=== PATIENT | female | born 2000 | race Hispanic/Latino ===

== ENCOUNTER 2020-02-09 15:16 | Emergency (ER) | payer MEDICAID ==
[~2020-02-09] VITALS: Ht 157.5 cm; Wt 50.5 kg
[2020-02-09] MEDS ORDERED: NS 1,000 ML IV ONE (16:15)
[2020-02-09 16:26] LABS: APPEARANCE, URINE HAZY (CLEAR); BACTERIA, URINE AUTO 1+ (NEGATIVE); BILIRUBIN, URINE AUTO NEGATIVE (NEGATIVE); BLOOD, URINE BLOOD NEGATIVE (NEGATIVE); COLOR, URINE YELLOW (YELLOW); GLUCOSE, URINE (UA) AUTO NEGATIVE (NEGATIVE); KETONE, URINE AUTO NEGATIVE (NEGATIVE); LEUKOCYTE ESTERASE, URINE AUTO NEGATIVE (NEGATIVE); MUCUS, URINE MODERATE (NEGATIVE); NITRITE, URINE AUTO NEGATIVE (NEGATIVE); PROTEIN, URINE AUTO 1+ mg/dL (NEGATIVE); RBC, URINE AUTO 4 /HPF (0-3); SPECIFIC GRAVITY URINE AUTO 1.019 (1.002-1.035); SQUAMOUS EPITHELIAL CELL UR AU 5 /HPF (0-6); UROBILINOGEN, URINE AUTO 0.2 mg/dL (0.0-2.0); WBC, URINE AUTO 3 /HPF (0-3)
[2020-02-09 16:41] LABS: BASO % 0.6 % (0.0-1.0); EOS # 0.1 10^3/uL (0.0-0.5); EOS % 1.6 % (0.0-3.0); HEMATOCRIT 34.8 % (36.0-47.0); HEMOGLOBIN 11.2 g/dl (12.0-15.5); LYMPH # 1.4 10^3/uL (1.5-5.0); LYMPH % 27.7 % (24.0-44.0); MEAN CORPUSCULAR HEMOGLOBIN 26.9 pg (27.0-33.0); MEAN CORPUSCULAR HGB CONC 32.2 g/dl (32.0-36.5); MEAN CORPUSCULAR VOLUME 83.5 fl (80.0-96.0); MONO # 0.4 10^3/uL (0.0-0.8); MONO % 6.8 % (0.0-5.0); NEUTROPHILS # 3.2 10^3/uL (1.5-8.5); NEUTROPHILS % 62.9 % (36.0-66.0); PLATELET COUNT, AUTOMATED 218 10^3/uL (150-450); RED BLOOD COUNT 4.17 10^6/uL (4.00-5.40); WHITE BLOOD COUNT 5.1 10^3/uL (4.0-10.0)
--- NOTE | 2020-02-09 17:09 | REPVR ---
PROCEDURE INFORMATION: Exam: US First Trimester, Transabdominal Exam date and time: 02/09/2020 4:44 PM Age: 20 years old Clinical indication: complicated by abdominal or pelvic pain; Lower; First trimester; Gestational age or lmp: 10 weeks 4days; ; Additional info: Vaginal bleeding, suprapubic pain TECHNIQUE: Imaging protocol: Real-time transabdominal obstetrical ultrasound of the maternal pelvis and a first trimester , less than 14 weeks 0 days, with image documentation. COMPARISON: No relevant prior studies available. FINDINGS: Gestation: Intrauterine gestation. Yolk sac is unremarkable. Embryonic/ heart rate: = 169 bpm. Placenta: Placenta is posterior. The inferior edge of the placenta covers the internal os. Amniotic fluid: Amniotic fluid is normal for gestational age. BIOMETRY: Gestational age (AUA): pole has a crown-rump length measurement of 4.12 cm for a menstrual age of 11 weeks and 0 days. MATERNAL: Uterus: The uterus is retroverted. Cervix: Unremarkable.. Right adnexa: Right ovary measures 3.4 x 1.9 by 1.7 cm. Arterial blood flow demonstrated in the right ovary on pulse Doppler . Left adnexa: Left ovary measures 4.4 x 2.6 by 2.7 cm and contains a complex follicle measuring 2.5 cm in maximum diameter. Arterial and venous blood flow demonstrated in the left ovary on color Doppler and pulse Doppler examination. Intraperitoneal space: No intraperitoneal free fluid. IMPRESSION: 1. Single live intrauterine with an estimated menstrual age of 11 weeks and 0 days. Expected date of delivery 08/30/2020. 2. No evidence of subchorionic hemorrhage. 3. Asymmetric placenta previa . Electronically signed by: Flor Guadarrama On 02/09/2020 17:09:33 PM
[2020-02-09] MEDS ORDERED: KEFL500C17 PO (17:55)
[2020-02-09] MEDS ORDERED: NS 500 ML IV ONE (18:30)
[2020-02-09 19:20] LABS: BLOOD UREA NITROGEN 7 MG/DL (7-18); CALCIUM LEVEL 8.8 MG/DL (8.5-10.1); CARBON DIOXIDE LEVEL 25 MEQ/L (21-32); CHLORIDE LEVEL 107 MEQ/L (98-107); CK-MB VALUE MASS < 1.0 NG/ML (<3.6); CPK CREATINE PHOSPHOKINASE 72 U/L (26-192); CREATININE FOR GFR 0.46 MG/DL (0.55-1.30); FREE T4 1.23 NG/DL (0.78-1.33); GLUCOSE, FASTING 84 MG/DL (70-100); MB/CK RELATIVE INDEX 1.39 (< OR =4); POTASSIUM SERUM 3.8 MEQ/L (3.5-5.1); SODIUM LEVEL 138 MEQ/L (136-145); THYROID STIMULATING HORMONE 0.563 uIU/ML (0.463-3.98); TROPONIN I < 0.02 NG/ML (< 0.10)
[2020-02-09 20:08] VITALS: BP 107/59
--- NOTE | 2020-02-10 00:11 | ECGEPIP ---
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
== END 2020-02-09 18:18 | disposition home or self-care (01) ==
LOC: M ED 15:16
DX: O20.0 Threatened abortion (principal); O26.891 Other specified pregnancy related conditions, first trimester; O20.8 Other hemorrhage in early pregnancy; O44.01 Complete placenta previa NOS or without hemorrhage, first trimester; O23.41 Unspecified infection of urinary tract in pregnancy, first trimester; O99.411 Diseases of the circulatory system complicating pregnancy, first trimester; Z87.59 Personal history of other complications of pregnancy, childbirth and the puerperium; Z3A.11 11 weeks gestation of pregnancy; Z91.018 Allergy to other foods

== ENCOUNTER 2020-03-06 23:09 | Emergency (ER) | payer MEDICAID ==
[~2020-03-06] VITALS: Ht 157.5 cm; Wt 50.0 kg
[~2020-03-06 23:09] MED LIST: KEFL500C17 PO
[2020-03-07 02:05] VITALS: BP 136/68
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
== END 2020-03-07 02:21 | disposition home or self-care (01) ==
LOC: M ED 23:09 → EDBD 23:09 → M ED 03-07 02:21
DX: S40.021A Contusion of right upper arm, initial encounter (principal); S40.022A Contusion of left upper arm, initial encounter; S50.11XA Contusion of right forearm, initial encounter; S50.12XA Contusion of left forearm, initial encounter; S30.0XXA Contusion of lower back and pelvis, initial encounter; Y04.8XXA Assault by other bodily force, initial encounter; Y92.9 Unspecified place or not applicable; Y93.9 Activity, unspecified; Y99.9 Unspecified external cause status; Z3A.14 14 weeks gestation of pregnancy; Z91.018 Allergy to other foods

== ENCOUNTER → 2020-04-18 | Outpatient (CLI) | payer MEDICAID ==
--- NOTE | 2020-04-18 12:36 | REP ---
INDICATION: PREG, ANATOMY. COMPARISON: Obstetric ultrasound dated 03/07/2020. TECHNIQUE: Ultrasound of the gravid uterus. FINDINGS: There is a single intrauterine gestation. position is variable. The placenta is posterior with grade 0 maturity. There is no placenta previa. There is a three-vessel cord. The cervix measures 4.8 cm length. heart rate is 126 beats per minute. The amniotic fluid volume subjectively is normal. The composite ultrasound gestational age today is 20 weeks 6 days with an KIRK of 08/30/2020. Gestational age by the 1st ultrasound is 20 weeks 3 days with an KIRK of 09/02/2020. Gestational age by LMP is 20 weeks 3 days with an KIRK of 09/02/2020. weight is 377 g, 0 lb-13 oz. The following anatomic structures are identified and are unremarkable: Cranium, cavum septum pellucidum, falx, intracranial ventricles, choroid plexus, cerebellum, cisterna magna, facial profile, orbits, upper lip, lungs, cardiac rhythm, four-chamber art, cardiac right left ventricular outflow tracts, diaphragm, stomach, abdominal wall, right kidney, left kidney, bladder, spine, right and left upper extremities, right left lower extremities, 3 vessel cord. IMPRESSION: No anomalies are identified. <Electronically signed by Sunil Worthington > 04/18/20 [id number]
== END ==
LOC: M RAD 10:16
PROVIDERS: ATTEND Obstetrics & Gynecology
DX: Z34.82 Encounter for supervision of other normal pregnancy, second trimester (principal); Z3A.20 20 weeks gestation of pregnancy

== ENCOUNTER 2020-06-27 08:25 | Emergency (ER) | payer MEDICAID ==
[~2020-06-27] VITALS: Ht 157.5 cm; Wt 58.6 kg
[2020-06-27 08:26] VITALS: BP 128/70
--- OUTSIDE RECORDS SUMMARY | 2020-06-27 08:34 | CCD ---
Author Author [facility] Organization [facility] Address Unknown Phone Unavailable Care Team Providers Care Financial Services Specialist Name Role Phone Boogie GONZALEZ Unavailable Unavailable NO, PCP Unavailable Unavailable Re-disclosure Warning The records that you are about to access may contain information from federally-assisted alcohol or drug abuse programs. If such information is present, then the following federally mandated warning applies: This information has been disclosed to you from records protected by federal confidentiality rules (42 CFR part 2). The federal rules prohibit you from making any further disclosure of this information unless further disclosure is expressly permitted by the written consent of the person to whom it pertains or as otherwise permitted by 42 CFR part 2. A general authorization for the release of medical or other information is NOT sufficient for this purpose. The Federal rules restrict any use of the information to criminally investigate or prosecute any alcohol or drug abuse patient.The records that you are about to access may contain highly sensitive health information, the redisclosure of which is protected by Article 27-F of the [facility] Public Health law. If you continue you may have access to information: Regarding HIV / AIDS; Provided by facilities licensed or operated by the [facility] Office of Mental Health; or Provided by the [facility] Office for People With Developmental Disabilities. If such information is present, then the following [facility] mandated warning applies: This information has been disclosed to you from confidential records which are protected by state law. State law prohibits you from making any further disclosure of this information without the specific written consent of the person to whom it pertains, or as otherwise permitted by law. Any unauthorized further disclosure in violation of state law may result in a fine or skilled nursing sentence or both. A general authorization for the release of medical or other information is NOT sufficient authorization for further disc losure. Encounters Encounter Providers Location Date Indications Data Source(s ) Outpatient Attender: ARLET GONZALEZConsultant: PCP NO 02/02/2020 04:41:00 PM EDT - 02/02/2020 05:41:00 PM EDT [facility] Insurance Providers Payer name Policy type / Coverage type Policy ID Covered constitution party ID Covered constitution party's relationship to zuniga Policy Zuniga Plan Information EMEDNY [id number] SP [id number] MEDICAID -O/P [id number] Problems, Conditions, and Diagnoses Code Display Name Description Problem Type Effective Dates Data Source(s) E8680G4 with inconclusive viability, not applicable or unspecified with inconclusive viabil ity, not applicable or unspecified Diagnosis 02/02/2020 04:41:00 PM EDT [facility] Results ID Date Data Source [id number] 02/03/2020 02:48:00 [place] [address] PHONE: [phone] FAX: [phone] Name .................. : NAVIN JUÁREZ Acct Number.................. : [id number] ROOM. ................. : Number ................... : [id number] Stay type ............. : O/P Discharge Date......... ... : 02/02/20 Admit Date .... ..... : 02/02/20 Admit Phys .................... : CARLOS ODOM Date of ....... : 2000 Family Phys ................... : NO PCP Phone .................. : [phone] Age ................................ : 20 Film# .................. .:[id number] Sex ................................. : F Unsigned transcriptions are preliminary reports and do not represent a medical or legal document OB 1ST TRI UP TO 14 WEEKS [id number] COMPLETE:02/02/20 18:02 ADB [id number] (REASON FOR OBS: SIZES AND DATES FIRST TRIMESTER OBSTETRICAL ULTRASOUND: FINDINGS: A single live intrauterine is seen with estimated age of 9 weeks 4 days. heart rate is 170 beats per minute. Estimated delivery date is September 02, 2020. Subchorionic hemorrhage is not seen. In the left ovary is a 1.2 x 2.1 x 1.9 cm corpus luteal cyst. The ovaries are otherwise unremarkable. IMPRESSION: Single live intrauterine with estimated gestational age of 9 weeks 4 days. Subchorionic hemorrhage not appreciated. Electronically Reviewed and Signed By Marino Andre MD , 02/03/20 14:48, KGG Transcribe Initials: JENNA , Transcribe Date: 02/02/20 23:03, Dictation Date: Copy for: CARLOS Hyman via fax Copy for: [address] [facility] REC Page 1 of 1 Name Value Range Interpretation Code Description Data Delmy rce(s) Supporting Document(s) Procedure
--- OUTSIDE RECORDS SUMMARY | 2020-06-27 09:06 | CCD ---
Author Author [facility] Organization [facility] Address Unknown Phone Unavailable Care Team Providers Care Global Project Manager Name Role Phone Boogie GONZALEZ Unavailable Unavailable [...] is protected by Article 27-F of the [facility] Public Health law. If you continue you may have access to information: Regarding HIV / AIDS; Provided by facilities licensed or operated by the [facility] Office of Mental Health; or Provided by the [facility] Office for People With Developmental Disabilities. If such information is present, then the following [facility] mandated warning applies: This information has been [...] law may result in a fine or prison sentence or both. A general authorization for the release of medical or other information is NOT sufficient authorization for further disc losure. Encounters Encounter Providers Location Date Indications Data Source(s ) Outpatient Attender: ARLET GONZALEZConsultant: PCP NO 02/02/2020 04:41:00 PM EDT - 02/02/2020 05:41:00 PM EDT [facility] Insurance Providers Payer name Policy type / Coverage type Policy ID Covered constitution party ID Covered constitution party's relationship to zuniga Policy Zuniga Plan Information EMEDNY [id number] SP [id number] MEDICAID -O/P [id number] 18 [id number] Problems, Conditions, and Diagnoses Code Display Name Description Problem Type Effective Dates Data Source(s) [id number] with inconclusive viability, not applicable or unspecified with inconclusive viabil ity, not applicable or unspecified Diagnosis 02/02/2020 04:41:00 PM EDT [facility] Results ID Date Data Source [id number] 02/03/2020 02:48:00 [place] [address] PHONE: [phone] FAX: [phone] Name .................. : NAVIN JUÁREZ Acct Number.................. : [id number] ROOM. ................. : Number ................... : [id number] Stay type ............. : O/P Discharge Date......... ... : 02/02/20 Admit Date .... ..... : 02/02/20 Admit Phys .................... : CARLOS ODOM Date of ....... : 2000 Family Phys ................... : NO PCP Phone .................. : [phone] Age ................................ : 20 Film# .................. .:[id number] Sex ................................. : F Unsigned transcriptions are preliminary reports and do not represent a medical or legal document OB 1ST TRI UP TO 14 WEEKS [id number] COMPLETE:02/02/20 18:02 ADB [id number] (REASON FOR OBS: SIZES AND DATES FIRST [...] for: CARLOS Hyman via fax Copy for: 026 [facility] REC Page 1 of 1 Name Value Range Interpretation Code Description Data Delmy rce(s) Supporting Document(s) Procedure
== END 2020-06-27 09:02 | disposition home or self-care (01) ==
LOC: M ED 08:25
DX: Z3A.00 Weeks of gestation of pregnancy not specified (principal); Z91.018 Allergy to other foods

== ENCOUNTER → 2020-06-27 | Outpatient (CLI) | payer MEDICAID ==
[2020-06-27 11:31] LABS: HEMATOCRIT 27.8 % (36.0-47.0); HEMOGLOBIN 8.6 g/dl (12.0-15.5); MEAN CORPUSCULAR HEMOGLOBIN 26.5 pg (27.0-33.0); MEAN CORPUSCULAR HGB CONC 30.9 g/dl (32.0-36.5); MEAN CORPUSCULAR VOLUME 85.5 fl (80.0-96.0); PLATELET COUNT, AUTOMATED 249 10^3/uL (150-450); RED BLOOD COUNT 3.25 10^6/uL (4.00-5.40); WHITE BLOOD COUNT 7.2 10^3/uL (4.0-10.0)
== END ==
LOC: M LAB 09:21
PROVIDERS: ATTEND Advanced Practice Midwife
DX: Z36.89 Encounter for other specified antenatal screening (principal)

== ENCOUNTER → 2020-08-08 | Outpatient (REF) | payer MEDICAID | LOC: M LAB REF 16:14 | PROVIDERS: ATTEND Obstetrics & Gynecology | DX: Z34.83 Encounter for supervision of other normal pregnancy, third trimester (principal); Z36.85 Encounter for antenatal screening for Streptococcus B ==

== ENCOUNTER 2020-08-31 19:14 | Inpatient (IN) | payer OTHER ==
[2020-08-31] VITALS (16 sets, daily range): BP systolic 96–142; BP diastolic 55–97
[~2020-08-31] VITALS: Ht 157.5 cm; Wt 62.6 kg
[2020-08-31] MEDS ORDERED: PRENTAB9 PO (19:55)
[2020-08-31] MEDS ORDERED: ceFAZolin SOD 2 GM in IV 1 EA IV STA (20:10)
[2020-08-31] MEDS ORDERED: PENICILLIN G POTASSIUM IV 5 MU in D5W MINI-BAG PLUS 100 ML IV STA (20:45)
--- NOTE | 2020-08-31 20:55 | HPEPDOC ---
Obstetrical History & Physical General Date of Admission Aug 31, 2020 at 19:57 History of Present Illness 20 yo at 39 5/7 weeks gestation (EDC=09/02/2020) presents with regular con tractions for the last several hours. Good movement[facility] Chief Complaint: Contractions, term Information Provided By: Patient Age: 20 : 3 Term: 0 Pre-term: 0 Abortions: 2 Livin Care Care: Good Care Dating Final EDC: September 02, 2020 Final EDC by: 1st trimester (US) Past Medical History Past Medical History Surgical History: Denies/None Family History Significant Family History: No pertinent family hx Social History Marital Status: Single Psychosocial History: No pertinent psych hx * Smoker: non-smoker Allergies Coded Allergies: victor (Verified Allergy, Intermediate, LIPS SWELL, 08/31/20) Medications Scheduled No.137/Iron/Folic Acd ( Vitamin Tablet) 1 Each Tablet, 1 TAB PO DAILY Physical Examination Physical Examination GENERAL: Alert and oriented times three. BREAST: . ABDOMEN: Gravid and non-tender to touch. FETUS: Is vertex (VTX) by sterile vaginal examination (SVE), fetus is vertex (VTX) by Brandon. HEART RATE: Regular rate and rhythm. LUNGS: Clear to auscultation (CTA). EXTREMITIES: No edema. No clonus. Deep tendon reflexes (DTRs) + . Pertinent Laboratoy Data Blood Type: A+ Group B Streptococcus: Positive Vaginal Examination Dilation: 4 cm Effacement: 70% Station: -2 Cervical Consistency: Soft Presentation: Cephalic presentation Assessment Variability: Moderate Accelerations: Positive Decelerations: None Tocometer Frequency: regular, every 1-3 min., every 1-5 min. Duration: greater than 60 seconds Strength: palpated as moderate Assessment/Plan Assessment Pt is a 20-year-old (G)3 para (P)0-0-2-0 at 39+5weeks by 9-week ultrasound presents to Labor and Delivery (L&D) in active labor. Plan Admit and orient. Copy Room Technician and consent. Diet: liquids. Group B Streptococcus (GBS) positive Labs and intravenous (IV) per unit protocol.. Anticipate [normal spontaneous delivery ()]. C-S as appropriate. TRIXIE ZAPIEN MD Aug 31, 2020 20:55
[2020-08-31 21:14] LABS: HEMATOCRIT 35.3 % (36.0-47.0); HEMOGLOBIN 11.1 g/dl (12.0-15.5); MEAN CORPUSCULAR HEMOGLOBIN 26.4 pg (27.0-33.0); MEAN CORPUSCULAR HGB CONC 31.4 g/dl (32.0-36.5); PLATELET COUNT, AUTOMATED 206 10^3/uL (150-450)
[2020-08-31] MEDS ORDERED: FENTANYL 2MCG/ML ROPIVACAINE 0.2% IN 0.9% NACL 100ML IVBAG As Ordered ONE (21:21)
[2020-08-31] MEDS ORDERED: ONDANSETRON 4MG/2ML VIAL IV PRN (21:28)
[2020-08-31] MEDS ORDERED: EPIDURAL COMMENT XX SCH (21:28)
[2020-08-31] MEDS ORDERED: EPIDURAL/PCA KEYS XX PRN (21:28)
[2020-08-31] MEDS ORDERED: FENTANYL/ROPIVACAINE/NACL BAG 100 ML EPIDURAL SCH (21:28)
[2020-08-31] MEDS ORDERED: diphenhydrAMINE 50MG/ML VIAL (J1200) IV PRN (21:28)
[2020-08-31] MEDS ORDERED: ePHEDrine SULFATE 25 MG/5 ML(5MG/ML) SYRINGE IV PRN (21:28)
[2020-08-31] MEDS ORDERED: LACTATED RINGER'S 1000 ML IV PRN (21:28)
[2020-08-31] MEDS ORDERED: REFRIGERATOR IV KEYS XX PRN (21:28)
[2020-08-31] MEDS ORDERED: NALOXONE INJ 0.4MG/1ML VIAL (J2310 PER 1MG) IV PRN (21:28)
[2020-08-31] MEDS ORDERED: OXYTOCIN DRIP 30 UNITS in IV 1 EA IV SCH (22:35)
[2020-09-01] VITALS (16 sets, daily range): BP systolic 99–138; BP diastolic 57–72
[2020-09-01] MEDS ORDERED: PENICILLIN G POTASSIUM IV 2.5 MU in IV 1 EA IV SCH (01:00)
[2020-09-01] MEDS ORDERED: IBUPROFEN 800 MG TAB PO PRN (03:20)
[2020-09-01] MEDS ORDERED: DOCUSATE SODIUM 100MG CAPSULE PO PRN (03:20)
[2020-09-01] MEDS ORDERED: ACETAMINOPHEN 500 MG TAB PO PRN (03:20)
[2020-09-01] MEDS ORDERED: RHOGAM 300 MCG (1500 IU) INJ (J2790) IM SCH (03:20)
[2020-09-01] MEDS ORDERED: OXYTOCIN DRIP 30 UNITS in IV 1 EA IV ONE (03:20)
[2020-09-01] MEDS ORDERED: DIBUCAINE 1% OINTMENT 30GM TOP PRN (03:20)
[2020-09-01] MEDS ORDERED: METHYLERGONOVINE MALEATE 0.2 MG TAB PO PRN (03:20)
[2020-09-01] MEDS ORDERED: ACETAMINOPHEN TAB 650MG DOSE (2X325MG) PO PRN (03:20)
[2020-09-01] MEDS ORDERED: MEASLES,MUMPS,RUBELLA VACCINE INJ (MMR-II) (90707) SC SCH (03:20)
[2020-09-01] MEDS ORDERED: ONDANSETRON 4MG/2ML VIAL IV PRN (03:20)
--- NOTE | 2020-09-01 03:26 | DNPDOC ---
[facility] Delivery Note Delivery Note DATE OF DELIVERY: September 01, 2020 PREDELIVERY DIAGNOSIS: 39-5/7 weeks' gestation and labor. POST DELIVERY DIAGNOSIS: Delivered. PROCEDURE: Spontaneous vaginal delivery. NURSING STUDENT: Dr. Trixie Zapien MD ANESTHESIA: epidural. ESTIMATED BLOOD LOSS: 300 mL. FINDINGS: 7 pound 3 ounce male infant, Score 8/9, nuchal cord times 1. DELIVERY SUMMARY: Patient is a 20-year-old 1 now para 1 who was admitted to labor and delivery for active labor. She had no augmentation of labor. She had SROM. After an 18 minute second stage of labor she had a spontaneous vaginal delivery of a 7 lb 3 oz male . Loose nuchal cord x 1 reduced manually. Shoulders delivered with ease. Placenta delivered spontaneously and appeared intact. Pt received IV Pitocin immediately after delivery of the placenta. No vaginal lacerations. Sponge counts correct. TRIXIE ZAPIEN MD Sep 01, 2020 03:26
[2020-09-01] MEDS ORDERED: ceFAZolin SOD 1 GM in D5W MINI-BAG PLUS 50 ML IV SCH (04:10)
[2020-09-01] MEDS: PRENATAL VITAMINS CHEWABLE TABLET PO SCH (08:28)
[2020-09-01] MEDS: IBUPROFEN 600MG TAB PO PRN ×2 (11:00→22:42)
[2020-09-02 06:00] VITALS: BP 119/69
--- NOTE | 2020-09-02 07:21 | IPNPDOC ---
Text Note Date of Service The patient was seen on 09/02/20. NOTE PP #1 Feels well. Adequate pain management. Voiding VSS, afebrile, normotensive Breasts soft, nipples intact Fundus firm, NT, down 1 Perineum well approximated Lochia rubra light without odor PP #1 Routine care. Anticipate discharge later today or tomorrow VS,Fishbone, I+O VS, Fishbone, I+O Vital Signs Date Time Temp Pulse Resp B/P (MAP) Pulse Ox O2 Delivery O2 Flow Rate FiO2 09/02/20 06:00 98.7 60 18 119/69 (86) 09/01/20 06:11 98 Room Air I&O- Last 24 Hours up to 6 AM 09/02/20 06:00 Intake Total 400 ml Balance 400 ml Aurora Alfaro CNM September 02, 2020 07:21
[2020-09-02] MEDS: PRENATAL VITAMINS CHEWABLE TABLET PO SCH (07:43)
[2020-09-02] MEDS ORDERED: BOOSTRIX/ADACEL VACCINE (DIPHTH/PERTUSS/ACELL/TETANUS) 0.5ML SYR IM ONE (09:00)
[2020-09-02 17:52] VITALS: BP 120/56
== END 2020-09-02 21:50 | disposition home or self-care (01) | DRG 560 ==
LOC: M LDO 19:14 → M LDI 19:57 → M OBS 09-01 05:55
PROVIDERS: ADMIT Specialist; ATTEND Specialist
PROC: 10E0XZZ Delivery of Products of Conception, External Approach (ICD-10-PCS; principal; 2020-09-01)
DX: O69.81X0 Labor and delivery complicated by cord around neck, without compression, not applicable or unspecified (principal); O99.824 Streptococcus B carrier state complicating childbirth; Z37.0 Single live birth; Z3A.39 39 weeks gestation of pregnancy

== ENCOUNTER → 2021-04-17 | Outpatient (CLI) | payer MEDICAID, OTHER ==
[~2021-04-17] MED LIST changes: +PRENTAB9 PO
== END ==
LOC: M PLALAB 14:08
PROVIDERS: ATTEND Advanced Practice Midwife
DX: Z34.81 Encounter for supervision of other normal pregnancy, first trimester (principal)

== ENCOUNTER → 2021-07-13 | Outpatient (CLI) | payer OTHER ==
[2021-07-13 13:50] LABS: BASO % 0.4 % (0.0-1.0); EOS # 0.1 10^3/uL (0.0-0.5); EOS % 1.6 % (0.0-3.0); HEMATOCRIT 33.9 % (36.0-47.0); HEMOGLOBIN 10.7 g/dl (12.0-15.5); LYMPH % 26.6 % (24.0-44.0); MEAN CORPUSCULAR HEMOGLOBIN 27.6 pg (27.0-33.0); MEAN CORPUSCULAR HGB CONC 31.6 g/dl (32.0-36.5); MEAN CORPUSCULAR VOLUME 87.6 fl (80.0-96.0); MONO # 0.6 10^3/uL (0.0-0.8); MONO % 7.4 % (2.0-8.0); NEUTROPHILS # 4.9 10^3/uL (1.5-8.5); NEUTROPHILS % 63.6 % (36.0-66.0); PLATELET COUNT, AUTOMATED 248 10^3/uL (150-450); RED BLOOD COUNT 3.87 10^6/uL (4.00-5.40); WHITE BLOOD COUNT 7.7 10^3/uL (4.0-10.0)
[2021-07-13 14:59] LABS: HEPATITIS C VIRUS ABY INDEX 0.1 INDEX (<0.8); HIV 1&2 SCREEN CENTAUR NEGATIVE (NEGATIVE)
[2021-07-13 15:13] LABS: GC DNA AMPLIFICATION NEGATIVE (NEGATIVE)
== END ==
LOC: M PLALAB 09:21
PROVIDERS: ATTEND Advanced Practice Midwife
DX: Z34.91 Encounter for supervision of normal pregnancy, unspecified, first trimester (principal)

== ENCOUNTER → 2021-07-13 | Outpatient (CLI) | payer MEDICAID, OTHER | LOC: M WHC 07:48 | PROVIDERS: ATTEND Obstetrics & Gynecology | DX: Z34.82 Encounter for supervision of other normal pregnancy, second trimester (principal); Z3A.23 23 weeks gestation of pregnancy ==

== ENCOUNTER → 2021-10-09 | Outpatient (REF) | payer OTHER | LOC: M PLALAB 07:58 | PROVIDERS: ATTEND Advanced Practice Midwife | DX: Z34.93 Encounter for supervision of normal pregnancy, unspecified, third trimester (principal) ==

== ENCOUNTER → 2021-10-09 | Outpatient (CLI) | payer OTHER ==
[2021-10-09 11:10] LABS: HEMATOCRIT 30.3 % (36.0-47.0); HEMOGLOBIN 9.5 g/dl (12.0-15.5); MEAN CORPUSCULAR HEMOGLOBIN 25.2 pg (27.0-33.0); MEAN CORPUSCULAR HGB CONC 31.4 g/dl (32.0-36.5); MEAN CORPUSCULAR VOLUME 80.4 fl (80.0-96.0); PLATELET COUNT, AUTOMATED 251 10^3/uL (150-450); RED BLOOD COUNT 3.77 10^6/uL (4.00-5.40); WHITE BLOOD COUNT 9.4 10^3/uL (4.0-10.0)
[2021-10-09 12:55] LABS: GC DNA AMPLIFICATION NEGATIVE (NEGATIVE)
== END ==
LOC: M PLALAB 07:27
PROVIDERS: ATTEND Obstetrics & Gynecology
DX: Z34.82 Encounter for supervision of other normal pregnancy, second trimester (principal)
CPT/HCPCS: 36415; 82950; 85027; 86850; 86900; 86901; 87081; 87810; 87850; G0463

== ENCOUNTER 2021-11-05 20:58 | Inpatient (IN) | payer OTHER ==
[2021-11-05] VITALS (12 sets, daily range): BP systolic 103–143; BP diastolic 56–89
[~2021-11-05] VITALS: Ht 157.5 cm; Wt 61.2 kg
[2021-11-05] MEDS ORDERED: LACTATED RINGER'S 1000 ML IV STA (21:18)
[2021-11-05] MEDS ORDERED: CARBOPROST TROMETHAMINE 250 MCG/ML AMP IM PRN (21:20)
[2021-11-05] MEDS ORDERED: LIDOCAINE 1% MDV 20ML VIAL INFIL PRN (21:20)
[2021-11-05] MEDS ORDERED: OXYTOCIN INJ 10 UNITS/ML VIAL (J2590) IM PRN (21:20)
[2021-11-05] MEDS ORDERED: LR 1,000 ML IV SCH (21:20)
[2021-11-05] MEDS ORDERED: OXYTOCIN DRIP 30 UNITS in IV 1 EA IV PRN (21:20)
[2021-11-05] MEDS ORDERED: METHYLERGONOVINE MALEATE 0.2 MG/ML VIAL (J2210) IM PRN (21:20)
[2021-11-05] MEDS ORDERED: TRANEXAMIC ACID INJection 1,000 MG in NS 100 ML IV PRN (21:20)
[2021-11-05] MEDS ORDERED: IRON1TAB2 PO (21:33)
[2021-11-05] MEDS ORDERED: HOME MED LIST COMPLETE! XX SCH (21:35)
[2021-11-05 21:41] LABS: HEMATOCRIT 34.2 % (36.0-47.0); HEMOGLOBIN 10.4 g/dl (12.0-15.5); MEAN CORPUSCULAR HGB CONC 30.4 g/dl (32.0-36.5); PLATELET COUNT, AUTOMATED 272 10^3/uL (150-450); RED BLOOD COUNT 4.33 10^6/uL (4.00-5.40); WHITE BLOOD COUNT 11.2 10^3/uL (4.0-10.0)
[2021-11-05] MEDS ORDERED: FENTANYL 2MCG/ML ROPIVACAINE 0.2% IN 0.9% NACL 100ML IVBAG As Ordered ONE (21:56)
[2021-11-05] MEDS ORDERED: ONDANSETRON 4MG 2ML VIAL IV PRN (23:45)
[2021-11-05] MEDS ORDERED: diphenhydrAMINE 50MG/ML VIAL (J1200) IV PRN (23:45)
[2021-11-05] MEDS ORDERED: EPIDURAL/PCA KEYS XX PRN (23:45)
[2021-11-05] MEDS ORDERED: FENTANYL/ROPIVACAINE/NACL BAG 100 ML EPIDURAL SCH (23:45)
[2021-11-05] MEDS ORDERED: LR 500 ML IV PRN (23:45)
[2021-11-05] MEDS ORDERED: NALOXONE INJ 0.4MG/1ML VIAL (J2310 PER 1MG) IV PRN (23:45)
[2021-11-05] MEDS ORDERED: ePHEDrine SULFATE 25 MG/5 ML(5MG/ML) SYRINGE IVP PRN (23:45)
[2021-11-06] VITALS (9 sets, daily range): BP systolic 119–142; BP diastolic 63–83
[2021-11-06] MEDS ORDERED: RHOGAM 300 MCG (1500 IU) INJ (J2790) IM SCH (00:35)
[2021-11-06] MEDS ORDERED: METHYLERGONOVINE MALEATE 0.2 MG TAB PO PRN (00:35)
[2021-11-06] MEDS ORDERED: ANUSOL HC CREAM 30GM TOP PRN (00:35)
[2021-11-06] MEDS ORDERED: IBUPROFEN 800 MG TAB PO PRN (00:35)
[2021-11-06] MEDS ORDERED: ACETAMINOPHEN 500 MG TAB PO PRN (00:35)
[2021-11-06] MEDS ORDERED: DOCUSATE SODIUM 100MG CAPSULE PO PRN (00:35)
[2021-11-06] MEDS ORDERED: IBUPROFEN 600MG TAB PO PRN (00:35)
[2021-11-06] MEDS ORDERED: ACETAMINOPHEN TAB 650MG DOSE (2X325MG) PO PRN (00:35)
[2021-11-06] MEDS ORDERED: DIBUCAINE 1% OINTMENT 30GM TOP PRN (00:35)
[2021-11-06] MEDS: PRENATAL VITAMINS CHEWABLE TABLET PO SCH (08:09)
[2021-11-07 05:55] VITALS: BP 133/60
[2021-11-07] MEDS: PRENATAL VITAMINS CHEWABLE TABLET PO SCH (08:29)
[2021-11-07] MEDS ORDERED: IBUP80TA PO (10:47)
[2021-11-07] MEDS ORDERED: ACET-683 PO (10:47)
[2021-11-08] MEDS ORDERED: MEASLES,MUMPS,RUBELLA VACCINE INJ (MMR-II) (90707) SC.IMMUN ONE (09:00)
== END 2021-11-07 13:00 | disposition home or self-care (01) | DRG 807 ==
LOC: M LDO 20:58 → M LDI 21:08 → M OBS 11-06 02:36
PROVIDERS: ADMIT Advanced Practice Midwife; ATTEND Advanced Practice Midwife
PROC: 10907ZC Drainage of Amniotic Fluid, Therapeutic from Products of Conception, Via Natural or Artificial Opening (ICD-10-PCS; 2021-11-05)
PROC: 10E0XZZ Delivery of Products of Conception, External Approach (ICD-10-PCS; principal; 2021-11-06)
PROC: 0HQ9XZZ Repair Perineum Skin, External Approach (ICD-10-PCS; 2021-11-06)
DX: O70.0 First degree perineal laceration during delivery (principal); Z37.0 Single live birth; O69.81X0 Labor and delivery complicated by cord around neck, without compression, not applicable or unspecified; Z3A.39 39 weeks gestation of pregnancy